=== PATIENT | female | born 1940 | race Caucasian/White ===

== ENCOUNTER 2018-06-05 13:32 | Emergency (ER) | payer BC, OTHER ==
[~2018-06-05] VITALS: Ht 152.4 cm; Wt 61.2 kg
[2018-06-05 16:26] LABS: BILIRUBIN,URINE NEGATIVE (NEGATIVE); CLARITY,URINE CLEAR (CLEAR); COLOR,URINE YELLOW (YELLOW); KETONES,URINE NEGATIVE (NEGATIVE); LEUKOCYTE ESTERASE ,URINE NEGATIVE (NEGATIVE); NITRITE,URINE NEGATIVE (NEGATIVE); PROTEIN,URINE DIPSTICK NEGATIVE (NEGATIVE); URINE UROBILINOGEN 0.2 mg/dL (0.2 - 1)
[2018-06-05 16:48] LABS: BACTERIA,URINE FEW /HPF
== END 2018-06-05 17:34 | disposition home or self-care (01) ==
LOC: ER 13:32
DX: Z46.6 Encounter for fitting and adjustment of urinary device (principal); R30.0 Dysuria; I10 Essential (primary) hypertension; E78.5 Hyperlipidemia, unspecified; G89.29 Other chronic pain; Z95.1 Presence of aortocoronary bypass graft
CPT/HCPCS: 81001; 87086; 87186; 99284